=== PATIENT | male | born 1990 | race Caucasian/White ===

== ENCOUNTER 2024-04-06 13:22 | Emergency (ER) | payer MEDICAID, SELFPAY ==
[2024-04-06 13:22] VITALS: BP 141/92; PULSE 82; RESP 19; TEMP 36.3; O2SAT 99; BMI 29.2
[2024-04-06 14:24] VITALS: BP 141/92; PULSE 82; RESP 19; TEMP 36.3; O2SAT 99
--- NOTE | 2024-04-06 14:44 | CT_ITS ---
STUDY: CT SOFT TISSUE NECK WITH CONTRAST REASON FOR EXAM: Male, 34 years old. left neck pain, swelling RADIATION DOSAGE (If Supplied By Facility): CTDIvol = ( 16.49 ) mGy, DLP = ( 515.12 ) mGycm TECHNIQUE: The patient was scanned in a multi-detector CT scanner. High resolution transaxial imaging was performed following intravenous administration of IV 100mL Isovue-370. Sagittal and coronal images were reconstructed. Individualized dose optimization techniques were used for this CT. COMPARISON: None. FINDINGS: Left posterior lingual and parapharyngeal mild to moderate tonsillar hypertrophy and associated 1 cm complex microabscess is present, as seen on image 65/112 series 2. The left vallecula is also effaced secondary to the adjacent edema of the parenchyma. There is no airway compromise. No malignant mass is seen. The nasopharyngeal tonsils are also moderately hypertrophied but no abscess is present. The right parapharyngeal mucosa is normal. A follow-up exam should be performed to ensure the process completely resolved and no occult process is present. Mild reactive lymphadenopathy is present. Normal bilateral parotid glands. Normal bilateral engineering specialist spaces. Normal bilateral parapharyngeal spaces. Normal bilateral carotid spaces. Normal bilateral sublingual and submandibular glands and spaces. Normal visualized nasopharynx. Normal retropharyngeal space. Normal perivertebral space. The visualized tongue, tongue base and oropharynx are normal. There are minimally enlarged lymph nodes of the neck, with preservation of normal luis architecture, consistent with a reactive lymph hyperplasia. There is no demonstrated solid or cystic mass lesion. There is no abnormal contrast enhancement. Normal epiglottis, right vallecula and hypopharynx. The pre-epiglottic and paraglottic adipose spaces are normal. Normal visualized bilateral piriform sinuses, aryepiglottic folds, vocal cords, and arytenoid-cricoid articulations. Normal subglottic trachea. Normal bilateral lobes of the thyroid gland. Normal visualized pulmonary apices. Normal visualized paranasal sinuses. Normal visualized cervical spine. CT/Soft Tissue Neck WITH Contrast IMPRESSION: Left peritonsillar abscess 1. Left posterior lingual and parapharyngeal mild to moderate tonsillar hypertrophy and associated 1 cm complex microabscess is present, as seen on image 65/112 series 2. The left vallecula is also effaced secondary to the adjacent edema of the parenchyma. There is no airway compromise. No malignant mass is seen. The nasopharyngeal tonsils are also moderately hypertrophied but no abscess is present. The right parapharyngeal mucosa is normal. A follow-up exam should be performed to ensure the process completely resolved and no occult process is present. Mild reactive lymphadenopathy is present. Electronically Signed: Eric Lucero MD at 15:39 EDT ,
[2024-04-06 15:00] VITALS: BP 131/88; PULSE 91; RESP 16; TEMP 36.3; O2SAT 96
[2024-04-06 15:12] LABS: Absolute Lymphocyte Count 1.85 X10^3/uL (0.83-4.51); Basophil# 0.02 X10^3/uL; Basophil% 0.2 % (0-1); Eosinophil# 0.06 X10^3/uL; Eosinophils% 0.5 % (0-5); Hematocrit 51.2 % (40-54); Hemoglobin 17.4 g/dL (13.0-16.5); Lymphocyte # 1.85 X10^3/ul (0.83-4.51); Lymphocyte % 15.5 % (19-41); Mean Corpuscular Hgb 29.2 pg (27.0-32.0); Mean Corpuscular Volume 86.1 fL (80-94); Mean Platelet Vol. 10.2 fl (6.2-12.0); Monocyte# 0.95 X10^3/uL; NRBC Flagged by Analyzer 0 % (0-5); Neutrophil # 9.02 X10^3/uL (2.7-7.7); Neutrophil % 75.5 % (47-70); Platelet Count 180 K/mm3 (150-450); RBC Distribution Width CV 12.5 % (11.6-14.6); RBC Distribution Width SD 39.2 fl (35.1-43.9); Red Blood Count 5.95 M/mm3 (4.6-6.2); White Blood Count 11.9 K/mm3 (4.4-11.0)
[2024-04-06 15:28] LABS: Anion Gap 5 (5-15); BUN 16 mg/dL (7-18); BUN/Creat Ratio 15.2 RATIO (10-20); Calcium,Total 9.4 mg/dL (8.5-10.1); Chloride 106 mmol/L (98-107); Creatinine, Serum 1.05 mg/dL (0.70-1.30); EST Glomerular Filtration Rate 85 mL/min (>60); Est Glom Filt Rate - Afr Amer 103 mL/min (>60); Estimated Creatinine Clearance 117.89 ml/min; Glucose 96 mg/dL (74-106); Potassium 3.7 mmol/L (3.5-5.1); Sodium Level 139 mmol/L (136-145)
[2024-04-06 15:56] VITALS: BP 114/77; PULSE 78; RESP 16; TEMP 36.8; O2SAT 94
--- NOTE | 2024-04-06 16:26 | EDS_ITS ---
HPI History of Present Illness Chief Complaint: Sore Throat Informant: patient Narrative Narrative: Patient is a 34 year old male with reported history of tonsillectomy remotely presenting from urgent care with left sided throat pain and swelling. He notes he started to have symptoms 3 days ago with pain on the left side of his throat. Is been having subjective fevers at home. Been taking Tylenol with no significant relief of his symptoms. But urgent care today who were concerned about possible peritonsillar abscess and recommend he come to the ER. In addition he did have a cerumen pack smith on the left side that was cleaned out at urgent care. He had a strep swab that was negative. Patient denies any nausea or vomiting. Does report a allergy to clindamycin which he initially did not remember but his mom told him about. Denies any URI symptoms. No other complaints or concerns at this time. PFSH PFSH Medical History no medical history Home Medications ?Medication ?Instructions ?Recorded ?Last Taken ?Type amoxicillin 875 mg-potassium 1 tab PO BID #14 tabs 04/06/24 Unknown Rx clavulanate 125 mg tablet dexamethasone 6 mg tablet 12 mg (2 x 6 mg) PO X1 #2 tabs 04/06/24 Unknown Rx oxycodone 5 mg tablet 5 mg PO Q6H PRN pain 3 days #12 04/06/24 Unknown Rx tabs Allergy/AdvReac Type Severity Reaction Status Date / Time No Known Allergies Allergy Verified 04/06/24 13:24 Social History Smoking Status: Current every day smoker tobacco type: cigarettes ROS ROS ED Constitutional Constitutional ED: Reports chills, fever(s) and subjective ENT ENT ED: Reports sore throat and other Details: Reports painful swallowing, feeling of left-sided jaw swelling. Denies dental pain ; Denies ear pain or rhinorrhea Cardiovascular Cardiovascular: Denies chest pain Respiratory/Chest Respiratory/Chest: Denies cough Gastrointestinal Gastrointestinal: Denies abdominal pain, nausea or vomiting Musculoskeletal Musculoskeletal: Denies arthralgias or myalgias Integumentary Denies rash Neurologic Neurologic: Denies headache(s) EXAM Physical Exam Const Vital Signs: 04/06/24 13:22 04/06/24 14:24 04/06/24 15:00 Temperature 97.3 F L 97.3 F L 97.4 F L Temperature Source Temporal Oral Oral Pulse Rate 82 82 91 Respiratory Rate 19 H 19 H 16 Blood Pressure 141/92 H 141/92 H 131/88 H Blood Pressure Mean 108 108 102 Pulse Ox 99 99 96 Oxygen Delivery Method Room Air Room Air Room Air 04/06/24 15:56 Temperature 98.2 F Temperature Source Oral Pulse Rate 78 Respiratory Rate 16 Blood Pressure 114/77 Blood Pressure Mean 89 Pulse Ox 94 Oxygen Delivery Method Room Air Positive well nourished and well developed General Appearance ED: well developed and NAD HEENT Reports moist mucous membranes HEENT Narrative: Left tonsillar swelling with deviation of the palate towards the uvula. Normal phonation. Handling secretions. No trismus. Mild submandibular swelling and tenderness Eyes PERRL Neck supple Neck Narrative: Mild lymphadenopathy and pain on the left side. No stridor appreciated. Chest Wall inspection of chest normal and palpation of chest normal Resp normal respiratory effort and clear to auscultation bilaterally Cardio regular rate and regular rhythm GI normal to inspection, nondistended, normoactive bowel sounds Extremity normal to inspection Neuro oriented x3 Sensorium / Orientation: alert Psych mental status grossly normal Skin no rashes or lesions noted and no wounds MDM MDM MDM Narrative Medical decision making narrative: Patient evaluated with increased left-sided sore throat. Had prior outpatient strep swab that was negative. Physical exam findings concerning for peritonsillar abscess. Patient since his secretions and there is no airway emergency. Initially given IV fluids, Toradol and Decadron for symptoms. Lab work and CT obtained. CT shows a 1 cm complex microabscess of the left posterior lingual and parapharyngeal tonsil there is some associated edema with effacement of the left vallecula. Patient is about leukocytosis Hever 0.9. Lab work otherwise normal. On repeat evaluation patient as well as pain was able to swallow DC is feeling a little better. Case discussed with ENT, Dr. Quiñones. He is agreeable with outpatient antibiotics, treatment of steroids and close follow-up. Does request throat culture. This is obtained. Patient is given a dose of Unasyn in the emergency room. We discharged home with an additional course of Decadron to take tomorrow as well as a course of Augmentin. Will be given oxycodone for further pain control until the antibiotics intake and the swelling can improve. Is counseled alternate ibuprofen and Tylenol as well. Is given first dose of oxycodone in the emergency room. Patient agreeable plan of care. Encouraged return to emergency room if he has worsening of symptoms, inability to swallow or shortness of breath Differential diagnosis includes but not limited to tonsillitis, peritonsillar abscess, sialadenitis Lab Data Attestation: I reviewed the patient's lab results. Labs: Laboratory Results - last 24 hr 04/06/24 14:55 WBC 11.9 H RBC 5.95 Hgb 17.4 H Hct 51.2 MCV 86.1 MCH 29.2 MCHC 34.0 RDW Std Deviation 39.2 RDW Coeff of Noah 12.5 Plt Count 180 MPV 10.2 Immature Gran % (Auto) 0.300 Neut % (Auto) 75.5 H Lymph % (Auto) 15.5 L [place] % (Auto) 8.0 Eos % (Auto) 0.5 Baso % (Auto) 0.2 Absolute Neuts (auto) 9.0 H Absolute Lymphs (auto) 1.85 Nucleated RBC % 0 Sodium 139 Potassium 3.7 Chloride 106 Carbon Dioxide 28.0 Anion Gap 5 BUN 16 Creatinine 1.05 Estim Creat Clear Calc 117.89 Est GFR (MDRD) Af Amer 103 Est GFR (MDRD) Non-Af 85 BUN/Creatinine Ratio 15.2 Glucose 96 Calcium 9.4 Radiography Diagnostic Testing: Clinical Impression(s) from Imaging Studies Soft Tissue Neck CT 04/06/24 14:44 IMPRESSION: Left peritonsillar abscess 1. Left posterior lingual and parapharyngeal mild to moderate tonsillar hypertrophy and associated 1 cm complex microabscess is present, as seen on image 65/112 series 2. The left vallecula is also effaced secondary to the adjacent edema of the parenchyma. There is no airway compromise. No malignant mass is seen. The nasopharyngeal tonsils are also moderately hypertrophied but no abscess is present. The right parapharyngeal mucosa is normal. A follow-up exam should be performed to ensure the process completely resolved and no occult process is present. Mild reactive lymphadenopathy is present. Electronically Signed: Eric Lucero MD at 15:39 EDT Reading Location ID and State: [facility] / [place] , Service support , Discharge Plan Triage Chief Complaint: Sore Throat ED Provider: Antonieta Malloy Dx/Rx/DC Orders Clinical Impression: Abscess, peritonsillar, Odynophagia Instructions: ED Peritonsillar Abscess Prescriptions: New amoxicillin-pot clavulanate 875-125 mg tablet 1 tab PO BID Qty: 14 0RF oxycodone 5 mg tablet 5 mg PO Q6H PRN (Reason: pain) 3 Days Qty: 12 0RF dexamethasone 6 mg tablet 12 mg PO X1 Qty: 2 0RF Primary Care Provider: Care Physician,No Primary Referrals: Allen Carrion MD [Med Staff - Active Staff] - 3-5 Days Care Physician,No Primary [Primary Care Provider] - Activity Restrictions/Additional Instructions: Drink plenty of fluids. You may also alternate [id number] ibuprofen and Tylenol for pain. You been given a prescription for oxycodone for breakthrough pain. If you feel like your symptoms are worsening please return to the emergency room. Take the steroids tomorrow when you get it filled. Take all antibiotics as prescribed. Your next dose is due tomorrow morning. Print Language: Kazakh Disposition Disposition: Home, Self Care
== END 2024-04-06 17:08 | disposition home or self-care (01) ==
PROVIDERS: Emergency Provider Emergency Medicine; Visit Provider Emergency Medicine
DX: J36 Peritonsillar abscess (principal); F17.210 Nicotine dependence, cigarettes, uncomplicated; R13.10 Dysphagia, unspecified
CPT/HCPCS: 70491; 80048; 85025; 87070; 96361; 96365; 96375; 99283; J7030; J7050; A4216; J0295